=== PATIENT | female | born 1975 | race American Indian/Alaskan Native ===

== ENCOUNTER 2016-06-10 00:54 | Emergency (ER) | payer SELFPAY ==
[2016-06-10 01:32] VITALS: BP 127/78
[2016-06-10 02:08] LABS: Basophils % (Auto) 1.2 % (0.0-1.8); Eosinophils % (Auto) 3.1 % (0.0-4.3); Hematocrit 36.3 % (30.3-42.9); Mean Corpuscular HGB Conc 33 % (30-34); Mean Corpuscular Hemoglobin 29 pg (28-32); Mean Corpuscular Volume 88 fl (79-97); Platelet Count 295 K/mm3 (140-440); Red Blood Count 4.12 M/mm3 (3.65-5.03); White Blood Count 6.2 K/mm3 (4.5-11.0)
[2016-06-10 02:22] LABS: Anion Gap 18 mmol/L; BUN/Creatinine Ratio 17.14; Blood Urea Nitrogen 12 mg/dL (7-17); Calcium 8.9 mg/dL (8.4-10.2); Carbon Dioxide 23 mmol/L (22-30); Chloride 101.8 mmol/L (98-107); Glucose 98 mg/dL (65-100); Potassium 4.2 mmol/L (3.6-5.0); Sodium 139 mmol/L (137-145)
--- NOTE | 2016-06-10 19:09 | ED Elopement Review ---
ED Pt Elopement review - Results review Lab results: Laboratory Tests 06/10/16 06/10/16 06/10/16 01:46 01:46 04:44 WBC 6.2 RBC 4.12 Hgb 12.0 Hct 36.3 MCV 88 MCH 29 MCHC 33 RDW 13.0 L Plt Count 295 Lymph % (Auto) 40.1 H [place] % (Auto) 11.6 H Eos % (Auto) 3.1 Baso % (Auto) 1.2 Lymph # 2.5 [place] # 0.7 Eos # 0.2 Baso # 0.1 Seg Neutrophils % 44.0 Seg Neutrophils # 2.7 Sodium 139 Potassium 4.2 Chloride 101.8 Carbon Dioxide 23 Anion Gap 18 BUN 12 Creatinine 0.7 Estimated GFR > 60 BUN/Creatinine Ratio 17.14 Glucose 98 Calcium 8.9 Troponin T < 0.010 < 0.010 - Call Back decision Pt Call Back Decision: Call pt to return to ED MELODY (chest pain should be further evaluated)
== END 2016-06-10 08:05 | disposition left against medical advice (07) ==
LOC: ED 00:54
DX: R07.9 Chest pain, unspecified (principal); M54.9 Dorsalgia, unspecified; Z53.21 Procedure and treatment not carried out due to patient leaving prior to being seen by health care provider
CPT/HCPCS: 36415; 80048; 84484; 85025; 93005; 93010

== ENCOUNTER 2019-04-27 20:30 | Emergency (ER) | payer OTHER ==
[2019-04-28] MEDS ORDERED: IBUPROFEN 600 MG TAB PO ONE (01:20)
[2019-04-28] MEDS ORDERED: ACETAMINOPHEN 500 MG TAB PO ONE (01:20)
[2019-04-28] MEDS ORDERED: CYCLOBENZAPRINE 10 MG TAB PO ONE (01:20)
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
[2019-04-28 02:43] VITALS: BP 120/75
== END 2019-04-28 02:25 | disposition home or self-care (01) ==
LOC: ED 20:30
DX: S39.012A Strain of muscle, fascia and tendon of lower back, initial encounter (principal); Z79.899 Other long term (current) drug therapy; V89.2XXA Person injured in unspecified motor-vehicle accident, traffic, initial encounter; Y93.89 Activity, other specified; Y92.410 Unspecified street and highway as the place of occurrence of the external cause; Y99.8 Other external cause status
CPT/HCPCS: 72100